=== PATIENT | female | born 1965 | race Caucasian/White ===

== ENCOUNTER → 2017-06-18 | Outpatient (CLI) | payer BC, OTHER ==
[~2017-06-18] MED LIST: ACHD5005 PO; ALBU8.5H2 IH; CHOL100055 PO; DICY20TA57 PO; FOLI0.4T2 PO; Ibuprofen PO; MULT-608 PO; OMEG10005 PO; [UNRECOGNIZED DRUG - OTHER] PO
--- NOTE | 2017-06-18 08:30 | Diagnostic Imaging Report ---
INDICATION: Right-sided mass lower quadrant. History of multiple endocrine neoplasia type I. TECHNIQUE: Multiple real-time beltran scale sonographic images of the abdomen. CORRELATION STUDY: None FINDINGS: LIVER: 17 cm in length. Normal echotexture. GALLBLADDER: Surgically absent. COMMON BILE DUCT: Within normal limits for postcholecystectomy state at 8 mm. PANCREAS: Limited in visualization. The visualized portions appearing unremarkable. SPLEEN: Unremarkable. ABDOMINAL AORTA: Unremarkable, nonaneurysmal. INFERIOR VENA CAVA: Limited in visualization. RIGHT KIDNEY: 11.6 cm. Unremarkable. LEFT KIDNEY: 10.8 cm. Unremarkable. ASCITES: None. At the area described as the region of concern and mass, there is an abdominal wall hernia defect measuring approximately 13 mm. This does not appear to change with Valsalva. No definitive bowel echotexture. Patient reports that this is currently not bothering him. IMPRESSION: 1. There is a small abdominal wall hernia defect in the area described as the region of palpable abnormality. There appears to be herniated fat without definitive bowel involvement or otherwise mass appearance at this time. 2. The remainder of the abdominal ultrasound examination is unremarkable. Dictated by: Dictated on workstation # [id number]
== END ==
LOC: RAD 07:22
PROVIDERS: ATTEND Obstetrics & Gynecology
DX: K43.9 Ventral hernia without obstruction or gangrene (principal); Z86.39 Personal history of other endocrine, nutritional and metabolic disease
CPT/HCPCS: 76700

== ENCOUNTER 2019-06-29 10:17 | Emergency (ER) | payer BC, OTHER ==
[~2019-06-29] VITALS: Ht 157.5 cm; Wt 52.2 kg
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
[2019-06-29] MEDS ORDERED: METH-313 PO (11:16)
[2019-06-29 11:20] VITALS: BP 163/86
== END 2019-06-29 11:20 | disposition home or self-care (01) ==
LOC: EDUNIT# 10:17 → ER 10:18
DX: S16.1XXA Strain of muscle, fascia and tendon at neck level, initial encounter (principal); S20.212A Contusion of left front wall of thorax, initial encounter; J45.909 Unspecified asthma, uncomplicated; R40.2142 Coma scale, eyes open, spontaneous, at arrival to emergency department; R40.2252 Coma scale, best verbal response, oriented, at arrival to emergency department; R40.2362 Coma scale, best motor response, obeys commands, at arrival to emergency department; Z88.0 Allergy status to penicillin; Z88.2 Allergy status to sulfonamides; Z88.8 Allergy status to other drugs, medicaments and biological substances; Z90.49 Acquired absence of other specified parts of digestive tract; Z90.89 Acquired absence of other organs; Z90.710 Acquired absence of both cervix and uterus; Z82.49 Family history of ischemic heart disease and other diseases of the circulatory system; V49.59XA Passenger injured in collision with other motor vehicles in traffic accident, initial encounter
CPT/HCPCS: 70450; 71046; 72125

== ENCOUNTER 2021-10-30 01:40 | Emergency (ER) | payer SELFPAY ==
[~2021-10-30] VITALS: Ht 157.5 cm; Wt 55.3 kg
[~2021-10-30 01:40] MED LIST changes: +METH-313 PO
[2021-10-30 01:45] VITALS: BP 157/100
--- NOTE | 2021-10-30 01:56 | ED EENT ---
History of Present Illness General Chief Complaint: Dental Problems/Pain Stated Complaint: SWOLLEN MOUTH Source: patient Exam Limitations: no limitations History of Present Illness Date Seen by Provider: Oct 30, 2021 Time Seen by Provider: 01:39 Initial Comments Patient to the ER by private conveyance with chief complaint of under her partial bridge that she had placed a year and a half ago by Dr. Singh she is having some swelling and over the past day it is now involved her left cheek above the maxilla. She is not having a tremendous amount of pain. She is not having any fevers chills or difficulty eating or drinking. She did take a couple tablets of amoxicillin this evening that she had leftover from a previous dental infection. Allergies and Home Medications Allergies Coded Allergies: Penicillins (Unverified Allergy, Mild, 06/09/09) Sulfa (Sulfonamide Antibiotics) (Unverified Allergy, Mild, 06/09/09) prochlorperazine (Unverified Allergy, Mild, 06/09/09) Uncoded Allergies: "ZINES" (Allergy, Mild, 06/09/09) Patient Home Medication List Home Medication List Reviewed: Yes Albuterol (Proair Hfa) 8.5 Gm Hfa.aer.ad, 2 PUFF IH Q6H Prescribed by: SUGAR ORDAZ on 07/21/14 1057 Cholecalciferol (Vitamin D3) (Vitamin D) 10,000 Unit Capsule, 20,000 UNIT PO DAILY Prescribed by: MILAGROS AUSTIN on 07/19/14 0729 Folic Acid (Folic Acid 400 Mcg) 0.4 Mg Tablet, 1 EACH PO DAILY Prescribed by: MILAGROS AUSTIN on 07/19/14 0726 Methocarbamol (Robaxin-750) 750 Mg Tablet, 750 MG PO Q4H PRN for PAIN-SEVERE Prescribed by: MELCHOR PIMENTEL on 06/29/19 1116 Multivitamins (Multiple Vitamin) 1 Tab Tablet, 1 TAB PO DAILY, (Reported) Entered as Reported by: IVELISSE ELLIS on 07/15/14 1136 [place]-3 Fatty Acids ([place]-3) 1,000 Mg Capsule, 1,000 MG PO BID, (Reported) Entered as Reported by: IVELISSE ELLIS on 07/15/14 1136 [Garden 7] , 1 TAB PO DAILY, (Reported) Entered as Reported by: IVELISSE ELLIS on 07/15/14 1136 [Ibuprofen] 600 MG TAB, 600 MG PO Q6H PRN for PAIN Prescribed by: RYAN STEVENS on 07/19/14 1222 Review of Systems Review of Systems Constitutional: No chills, No diaphoresis Eyes: Denies Blindness, Denies Blurred Vision, Denies Drainage Ears: Denies Dizziness, Denies Pain Nose: denies clots, denies congestion Mouth: see HPI; denies clots, denies pain; swelling Throat: denies pain, denies swelling All Other Systems Reviewed Negative Unless Noted: Yes Past Gfsncmw-Xqsvfs-Dkbmzb Hx Patient Social History Tobacco Use?: No Use of E-Cig and/or Vaping dev: No Substance use?: No Seasonal Allergies Seasonal Allergies: No Past Medical History Surgeries: Yes (LEFT BREAST TUMOR, OVARIAN CYSTECTOMY, ENDOCRINE TUMORS, PORT PLACED & SIENNA) Appendectomy, Gallbladder, Hysterectomy, Tonsillectomy Respiratory: Yes Asthma 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) Neurological: No Reproductive Disorders: Yes 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 Gastrointestinal: Yes (LIVER ENZYME ELEVATION R/T MEDS BEFORE) Musculoskeletal: No Endocrine: 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)) Psychosocial: No Integumentary: No Blood Disorders: No Family Medical History Arthritis 19 FATHER Asthma 19 FATHER Completed stroke 19 MOTHER Diabetes mellitus 19 FATHER Hypertension 19 FATHER 19 MOTHER Multiple endocrine neoplasia [MEN] syndrome 19 FATHER (EVERYONE CARRIES THE GENE FOR THIS) No Family History of: AIDS Alcoholism Alzheimer's disease Cancer of mouth Cardiovascular disease Cataracts Dementia Drug abuse Kidney disease Myocardial infarction Parkinson's disease Prostate cancer Psychosocial problem Respiratory disorder Seizure disorder Severe allergy Thyroid disease Tuberculosis Physical Exam Height, Weight, BMI Height: 5'2.00" Weight: 115lbs. oz. 52.507493xx; 20.85 BMI Method:Stated General Appearance: WD/WN, no apparent distress Eyes: bilateral eye normal inspection, bilateral eye PERRL, bilateral eye EOMI Ears: bilateral ear auricle normal, bilateral ear canal normal, bilateral ear TM normal Nose: normal inspection, discharge Mouth/Throat: No normal mouth inspection, No pharynx normal; other (Extensive dental caries with a little bit gingival swelling on the left upper maxilla teeth with small amount of left facial swelling. No pointing or palpable fluctuance.) Progress/Results/Core Measures Results/Orders My Orders Orders - MCKINLEY LANDRUM Lidocaine 2% Viscous 15 Ml (Xylocaine Vi (10/30/21 02:00) Progress Progress Note : Time: :53 Progress Note We will put her on antibiotics, encourage her to follow-up with a dentist and give her some viscous lidocaine. Patient states that her allergy to penicillin was when she was young she had a rash. She has already taken a couple doses of amoxicillin and has had no symptoms. She should be able to tolerate amoxicillin just fine. We discussed this history of allergy with her and explained to her that it probably is not a true allergy and she agrees. We will take it off of her allergy list. Departure Impression Primary Impression: Dental abscess Additional Impression: Facial cellulitis Disposition: HOME, SELF-CARE Condition: Stable Departure-Patient Inst. Decision time for Depature: :53 Referrals: SUGAR SHERWOOD MD (PCP/Family) Primary Care Physician Patient Instructions: Tooth Abscess (DC), Cellulitis and Erysipelas (Skin Infections) Add. Discharge Instructions: Warm, moist washcloths applied to your face as often as necessary for swelling and pain. Tylenol 1000 mg every 8 hours necessary for pain. Ibuprofen 800 mg every 8 hours as necessary for pain. Amoxicillin 1000 mg twice a day with food for the next 10 days. Call your dentist and schedule a follow-up appointment in 1 to 2 weeks. All discharge instructions reviewed with patient and/or family. Voiced understanding. Scripts Amoxicillin (Amoxicillin) 500 Mg Capsule 1000 MG PO BID for 10 Days, #40 CAP 0 Refills Prov: MCKINLEY LANDRUM 10/30/21 MCKINLEY LANDRUM Oct 30, 2021 01:56
[2021-10-30] MEDS ORDERED: AMOX500C2 PO (01:57)
[2021-10-30] MEDS ORDERED: LIDOCAINE 2% VISCOUS 15 ML UDC PO ONE (02:00)
== END 2021-10-30 02:00 | disposition home or self-care (01) ==
LOC: EDUNIT# 01:40 → ER 01:43
DX: K04.7 Periapical abscess without sinus (principal); L03.211 Cellulitis of face; J45.909 Unspecified asthma, uncomplicated
CPT/HCPCS: 99283

== ENCOUNTER → 2021-12-28 | Outpatient (CLI) | payer SELFPAY ==
[~2021-12-28] MED LIST changes: +AMOX500C2 PO
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
== END ==
LOC: RAD 14:30
PROVIDERS: ATTEND Family Medicine
DX: S06.0X1A Concussion with loss of consciousness of 30 minutes or less, initial encounter (principal); S13.4XXA Sprain of ligaments of cervical spine, initial encounter; S00.33XA Contusion of nose, initial encounter; J32.9 Chronic sinusitis, unspecified; Y93.K1 Activity, walking an animal
CPT/HCPCS: 70450

== ENCOUNTER 2022-04-22 12:59 | Emergency (ER) | payer SELFPAY ==
[~2022-04-22] VITALS: Ht 157 cm; Wt 55.0 kg
[2022-04-22 13:02] VITALS: BP 164/80
--- NOTE | 2022-04-22 13:32 | Diagnostic Imaging Report ---
CLINICAL INDICATION: Patient with chest pain. EXAM: Portable chest x-ray, upright view. COMPARISON: Chest x-ray dated 10/15/2016. FINDINGS: Lungs/pleura: Stable appearance of lung fischer. There is no lung infiltrate. There is no pneumothorax. There is no pleural effusion. Mediastinum: Unremarkable. Pulmonary vasculature: Unremarkable. Heart: Unremarkable. Bones/extrathoracic soft tissue: There is left curvature of the thoracolumbar spine is seen. IMPRESSION: Stable chest x-ray exam with no interval radiographic evidence of acute cardiopulmonary process. Dictated by: Dictated on workstation # [id number]
--- NOTE | 2022-04-22 13:45 | ED General ---
General Stated Complaint: DIZZY - SOA - CHEST DISCOMFORT Source of Information: Patient Exam Limitations: No Limitations History of Present Illness Date Seen by Provider: Apr 22, 2022 Time Seen by Provider: 13:44 Timing/Duration: 1 Hour Severity: Moderate Associated Systoms: Syncope (near syncope), Weakness Allergies and Home Medications Allergies Coded Allergies: Sulfa (Sulfonamide Antibiotics) (Unverified Allergy, Mild, 06/09/09) prochlorperazine (Unverified Allergy, Mild, 06/09/09) Uncoded Allergies: "ZINES" (Allergy, Mild, 06/09/09) Patient Home Medication List Home Medication List Reviewed: Yes Albuterol (Proair Hfa) 8.5 Gm Hfa.aer.ad, 2 PUFF IH Q6H Prescribed by: SUGAR ORDAZ on 07/21/14 1057 Amoxicillin (Amoxicillin) 500 Mg Capsule, 1,000 MG PO BID Prescribed by: MCKINLEY LANDRUM on 10/30/21 0157 Cholecalciferol (Vitamin D3) (Vitamin D) 10,000 Unit Capsule, 20,000 UNIT PO DAILY Prescribed by: MILAGROS AUSTIN on 07/19/14 0729 Folic Acid (Folic Acid 400 Mcg) 0.4 Mg Tablet, 1 EACH PO DAILY Prescribed by: MILAGROS AUSTIN on 07/19/14 0726 Methocarbamol (Robaxin-750) 750 Mg Tablet, 750 MG PO Q4H PRN for PAIN-SEVERE Prescribed by: MELCHOR PIMENTEL on 06/29/19 1116 Multivitamins (Multiple Vitamin) 1 Tab Tablet, 1 TAB PO DAILY, (Reported) Entered as Reported by: IVELISSE ELLIS on 07/15/14 1136 Waldo-3 Fatty Acids (Waldo-3) 1,000 Mg Capsule, 1,000 MG PO BID, (Reported) Entered as Reported by: IVELISSE ELLIS on 07/15/14 1136 [Garden 7] , 1 TAB PO DAILY, (Reported) Entered as Reported by: IVELISSE ELLIS on 07/15/14 1136 [Ibuprofen] 600 MG TAB, 600 MG PO Q6H PRN for PAIN Prescribed by: RYAN STEVENS on 07/19/14 1222 Past Myjuvxn-Hujziz-Xaqlst Hx Seasonal Allergies Seasonal Allergies: No Past Medical History Surgeries: Yes (LEFT BREAST TUMOR, OVARIAN CYSTECTOMY, ENDOCRINE TUMORS, PORT PLACED & SIENNA) Appendectomy, Gallbladder, Hysterectomy, Tonsillectomy Respiratory: Yes Asthma 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) Neurological: No Reproductive Disorders: Yes 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 Gastrointestinal: Yes (LIVER ENZYME ELEVATION R/T MEDS BEFORE) Musculoskeletal: No Endocrine: 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)) Psychosocial: No Integumentary: No Blood Disorders: No Family Medical History Arthritis 19 FATHER Asthma 19 FATHER Completed stroke 19 MOTHER Diabetes mellitus 19 FATHER Hypertension 19 FATHER 19 MOTHER Multiple endocrine neoplasia [MEN] syndrome 19 FATHER (EVERYONE CARRIES THE GENE FOR THIS) No Family History of: AIDS Alcoholism Alzheimer's disease Cancer of mouth Cardiovascular disease Cataracts Dementia Drug abuse Kidney disease Myocardial infarction Parkinson's disease Prostate cancer Psychosocial problem Respiratory disorder Seizure disorder Severe allergy Thyroid disease Tuberculosis Physical Exam Vital Signs Capillary Refill : Height, Weight, BMI Height: 5'2.00" Weight: 115lbs. oz. [id number]; 22.00 BMI Method:Stated Progress/Results/Core Measures Suspected Sepsis SIRS Temperature: Pulse: Respiratory Rate: Laboratory Tests 04/22/22 13:26: White Blood Count 6.0 Blood Pressure / Mean: Laboratory Tests 04/22/22 13:26: Creatinine 0.79, INR Comment 0.9, Platelet Count 271, Total Bilirubin 0.4 Results/Orders Lab Results Laboratory Tests Test 04/22/22 13:26 Range/Units White Blood Count 6.0 4.3-11.0 10^3/uL Red Blood Count 4.12 3.80-5.11 10^6/uL Hemoglobin 13.2 11.5-16.0 g/dL Hematocrit 39 35-52 % Mean Corpuscular Volume 94 80-99 fL Mean Corpuscular Hemoglobin 32 25-34 pg Mean Corpuscular Hemoglobin Concent 34 32-36 g/dL Red Cell Distribution Width 11.9 10.0-14.5 % Platelet Count 271 130-400 10^3/uL Mean Platelet Volume 9.9 9.0-12.2 fL Immature Granulocyte % (Auto) 0 % Neutrophils (%) (Auto) 46 42-75 % Lymphocytes (%) (Auto) 39 12-44 % Monocytes (%) (Auto) 11 0-12 % Eosinophils (%) (Auto) 4 0-10 % Basophils (%) (Auto) 1 0-10 % Neutrophils # (Auto) 2.7 1.8-7.8 10^3/uL Lymphocytes # (Auto) 2.3 1.0-4.0 10^3/uL Monocytes # (Auto) 0.7 0.0-1.0 10^3/uL Eosinophils # (Auto) 0.2 0.0-0.3 10^3/uL Basophils # (Auto) 0.0 0.0-0.1 10^3/uL Immature Granulocyte # (Auto) 0.0 0.0-0.1 10^3/uL Prothrombin Time 12.5 12.2-14.7 SEC INR Comment 0.9 0.8-1.4 Activated Partial Thromboplast Time 26 24-35 SEC Sodium Level 140 135-145 MMOL/L Potassium Level 3.8 3.6-5.0 MMOL/L Chloride Level 105 98-107 MMOL/L Carbon Dioxide Level 23 21-32 MMOL/L Anion Gap 12 5-14 MMOL/L Blood Urea Nitrogen 25 H 7-18 MG/DL Creatinine 0.79 0.60-1.30 MG/DL Estimat Glomerular Filtration Rate 87 BUN/Creatinine Ratio 32 Glucose Level 114 H 70-105 MG/DL Calcium Level 9.1 8.5-10.1 MG/DL Corrected Calcium 9.0 8.5-10.1 MG/DL Magnesium Level 1.9 1.6-2.4 MG/DL Total Bilirubin 0.4 0.1-1.0 MG/DL Aspartate Amino Transf (AST/SGOT) 23 5-34 U/L Alanine Aminotransferase (ALT/SGPT) 30 0-55 U/L Alkaline Phosphatase 68 40-136 U/L Myoglobin 30.4 10.0-92.0 NG/ML Troponin I < 0.028 <0.028 NG/ML Total Protein 6.9 6.4-8.2 GM/DL Albumin 4.1 3.2-4.5 GM/DL Amylase Level 96 25-125 U/L Lipase 54 8-78 U/L Vital Signs/I&O Capillary Refill : Progress Note : Time: 14:32 Progress Note Patient seen and evaluated, never had chest pain, pressure or tightness. Had a "cold sensation" in her chest and felt near syncopal. She never actually had a syncopal event. Further into the interview the patient realized as the symptoms repeated in the ED while she was drinking that she was drinking water when this occurred at work earlier today as well. Potentially she is having vasovagal responses secondary to possibly esophageal spasm or her history of esophageal ulcer?. Her vital signs have remained stable here she is asymptomatic currently. I have strongly encouraged her to follow-up with Dr. Lamb. We will send a copy of this chart to her office for her review. She has no real significant risk factors for cardiovascular disease. She is very fit healthy, non-smoker no history of hypertension no family history no hypercholesterolemia. Labs are perfect. EKG is perfect, chest x-ray is perfect. All of the stuff is communicated to the patient. She is comfortable with the plan of care. All questions are sought and answered. Patient is stable for discharge. ECG Initial ECG Impression Date: Apr 22, 2022 Initial ECG Impression Time: 13:14 Initial ECG Rate: 75 Initial ECG Rhythm: Normal Sinus Initial ECG Intervals: Normal Initial ECG Impression: Normal Diagnostic Imaging Diagonstic Imaging: Xray Plain Films/CT/US/NM/MRI: chest Comments [facility] [place], [place] NAME: PETE ANAND [facility] REC#: [id number] PT STATUS: REG ER : 1965 PHYSICIAN: JAK NICOLE APRN ADMIT DATE: 04/22/22/ER Draft Date of Exam:04/22/22 CHEST 1 VIEW, AP/PA ONLY CLINICAL INDICATION: Patient with chest pain. EXAM: Portable chest x-ray, upright view. COMPARISON: Chest x-ray dated 10/15/2016. FINDINGS: Lungs/pleura: Stable appearance of lung fischer. There is no lung infiltrate. There is no pneumothorax. There is no pleural effusion. Mediastinum: Unremarkable. Pulmonary vasculature: Unremarkable. Heart: Unremarkable. Bones/extrathoracic soft tissue: There is left curvature of the thoracolumbar spine is seen. IMPRESSION: Stable chest x-ray exam with no interval radiographic evidence of acute cardiopulmonary process. 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 Decision time for Depature: 14:43 Referrals: MAGO LAMB MD, LISA A MD (PCP/Family) Primary Care Physician Patient Instructions: Near Fainting (DC) Add. Discharge Instructions: Drink plenty of water to stay well-hydrated Ksri-mva-vhcxqag Pepcid or generic equivalent 20 mg twice daily for 2 weeks Please call and follow-up with Dr. Lamb. Please come back to the emergency department if you have any worsening symptoms or new emergent concerns. Copy Copies To 1: MAGO LAMB MD, KATHRYN M MD Apr 22, 2022 13:45
[2022-04-22 13:48] LABS: BASOPHILS % (AUTO) 1 % (0-10); EOSINOPHILS # (AUTO) 0.2 10^3/uL (0.0-0.3); EOSINOPHILS % (AUTO) 4 % (0-10); HEMATOCRIT 39 % (35-52); HEMOGLOBIN 13.2 g/dL (11.5-16.0); LYMPHOCYTES # (AUTO) 2.3 10^3/uL (1.0-4.0); LYMPHOCYTES % (AUTO) 39 % (12-44); MEAN CORPUSCULAR HEMOGLOBIN 32 pg (25-34); MEAN CORPUSCULAR HGB CONC 34 g/dL (32-36); MEAN CORPUSCULAR VOLUME 94 fL (80-99); MEAN PLATELET VOLUME 9.9 fL (9.0-12.2); MONOCYTES # (AUTO) 0.7 10^3/uL (0.0-1.0); MONOCYTES % (AUTO) 11 % (0-12); NEUTROPHILS # (AUTO) 2.7 10^3/uL (1.8-7.8); NEUTROPHILS % (AUTO) 46 % (42-75); PLATELET COUNT 271 10^3/uL (130-400)
[2022-04-22 13:55] LABS: ALBUMIN 4.1 GM/DL (3.2-4.5); POTASSIUM 3.8 MMOL/L (3.6-5.0)
[2022-04-22 13:56] LABS: AMYLASE 96 U/L (25-125); CALCIUM 9.1 MG/DL (8.5-10.1)
[2022-04-22 13:57] LABS: TOTAL PROTEIN 6.9 GM/DL (6.4-8.2)
[2022-04-22 13:59] LABS: BILIRUBIN,TOTAL 0.4 MG/DL (0.1-1.0)
[2022-04-22 14:00] LABS: INR 0.9 (0.8-1.4); PROTHROMBIN TIME PATIENT 12.5 SEC (12.2-14.7)
[2022-04-22 14:01] LABS: CREATININE SERUM 0.79 MG/DL (0.60-1.30)
[2022-04-22 14:04] LABS: MAGNESIUM 1.9 MG/DL (1.6-2.4)
[2022-04-22 14:05] LABS: LIPASE 54 U/L (8-78)
== END 2022-04-22 14:50 | disposition home or self-care (01) ==
LOC: EDUNIT# 12:59 → ER 13:01
DX: E31.21 Multiple endocrine neoplasia [MEN] type I (principal); R55 Syncope and collapse
CPT/HCPCS: 36415; 71045; 80053; 82150; 83690; 83735; 83874; 84484; 85025; 85610; 85730; 93005; 93041